=== PATIENT | male | born 1970 | race Caucasian/White ===

== ENCOUNTER 2022-01-13 19:47 | Emergency (ER) | payer OTHER ==
[2022-01-13 20:35] LABS: Absolute Lymphocytes (CBC) 0.7 K/uL (0.7-4.9); Hematocrit 45.8 % (39.6-49.0); Lymphocytes % 4.1 % (15.3-44.8); MPV 7.1 fL (7.6-11.3); RBC Red Blood Cell Count 4.57 M/uL (4.33-5.43)
[2022-01-13 20:36] LABS: Protime INR 1.04
[2022-01-13 20:48] LABS: Albumin 3.7 g/dL (3.4-5.0); BUN Blood Urea Nitrogen 7 mg/dL (7-18); Bicarbonate 27 mmol/L (21-32); Glucose Level 122 mg/dL (74-106); Potassium 3.7 mmol/L (3.5-5.1); Sodium Level 133 mmol/L (136-145)
[2022-01-13] MEDS ORDERED: THIAMINE 200 MG/2 ML INJ ONE (20:49)
[2022-01-13] MEDS ORDERED: ACETAMINOPHEN 500 MG TAB ONE (20:49)
[2022-01-13] MEDS ORDERED: MULTIVITAMINS 10 ML VIAL (INJ) IV ONE (20:50)
[2022-01-13] MEDS ORDERED: NA CHLORIDE 0.9% 1,000 ML ONE (20:50)
[2022-01-13] MEDS ORDERED: FOLIC ACID 5 MG/ML VIAL ONE (20:53)
--- NOTE | 2022-01-13 21:07 | RAD REPORT ---
EXAM DESCRIPTION: CT - Head Brain Wo Cont - 01/13/2022 8:56 pm CLINICAL HISTORY: HEADACHE COMPARISON: <Comparisons> TECHNIQUE: Axial 5 mm thick images of the head were obtained without IV contrast. All CT scans are performed using dose optimization technique as appropriate and may include automated exposure control or mA/KV adjustment according to patient size. FINDINGS: No intracranial hemorrhage, mass, edema or shift of mid-line structures. No acute infarcti on changes seen. No abnormal extra-axial fluid collections. Ventricles are normal. Mastoid air cells and visualized portions of the paranasal sinuses are clear. No acute bony findings. IMPRESSION: Negative non-contrast CT head examination.
[2022-01-13 21:37] LABS: ALT/SGPT 46 U/L (12-78); AST/SGOT 33 U/L (15-37); Alkaline Phosphatase 91 U/L (45-117); Bilirubin Direct 0.2 mg/dL (0-0.2); Bilirubin Total 0.8 mg/dL (0.2-1.0); NT PRO-BNP 88 pg/mL (<125); Protein, Total 7.8 g/dL (6.4-8.2)
[2022-01-13 21:44] LABS: Urine Blood Trace-intact (Negative); Urine Glucose Negative (Negative); Urine Protein 1+ (Negative)
[2022-01-13 22:00] LABS: Blood Morphology Comment NOT SEEN (NOT SEEN); Platelet Estimate ADEQ; White Blood Cell Scan OK (OK)
--- NOTE | 2022-01-13 22:12 | RAD REPORT ---
EXAM DESCRIPTION: RAD - Chest Single View - 01/13/2022 9:05 pm CLINICAL HISTORY: Hypertension COMPARISON: None TECHNIQUE: AP portable chest image was obtained 01/13/2022 9:05 pm . FINDINGS: Lungs are clear. Heart and vasculature are normal. No measurable pleural effusion and no p neumothorax. No acute bony abnormality seen. No acute aortic findings suspected. IMPRESSION: No acute cardiopulmonary process.
[2022-01-13] MEDS ORDERED: chlordiazePOXIDE HCl 25 MG CAP ONE (22:20)
[2022-01-13 22:23] LABS: Barbiturates NEGATIVE (NEGATIVE); Benzodiazepines NEGATIVE (NEGATIVE); Cocaine NEGATIVE (NEGATIVE); METHAMPHETAM NEGATIVE (NEGATIVE); Methadone NEGATIVE (NEGATIVE); Opiates NEGATIVE (NEGATIVE); Phencyclidine NEGATIVE (NEGATIVE); THC Cannibis POSITIVE (NEGATIVE)
[2022-01-13 22:57] LABS: SARS-COV-2 RT PCR NEGATIVE (NEGATIVE)
--- NOTE | 2022-01-14 00:04 | ER ---
Nurse's Notes [facility] Name: Mars Raymond Age: 51 yrs Sex: Male : 1970 Arrival Date: 01/13/2022 Time: 19:49 Bed 20 Private MD: Diagnosis: Elevated blood-pressure reading, without diagnosis of hypertension;Alcohol abuse Presentation: 01/13 19:49 Chief complaint: Patient states: [facility] sm[facility] his BP and it was 150/103, gave pt an unknown blood pressure medication. pt has no hx of HTN. pt's last drink was at 11am. Coronavirus screen: Vaccine status: Patient reports being unvaccinated. Ebola Screen: No symptoms or risks identified at this time. Initial Sepsis Screen: Does the patient meet any 2 criteria? No. Patient's initial sepsis screen is negative. Does the patient have a suspected source of infection? No. Patient's initial sepsis screen is negative. Risk Assessment: Do you want to hurt yourself or someone else? Patient reports no desire to harm self or others. Onset of symptoms was January 13, 2022. 19:49 Method Of Arrival: EMS: [facility] 19:49 Acuity: LENA 3 sm5 Triage Assessment: 19:53 General: Appears in no apparent distress. Behavior is cooperative. Pain: Complains of sm5 pain in head. Neuro: No deficits noted. Level of Consciousness is awake, alert, obeys commands, Oriented to person, place, time, situation. Cardiovascular: No deficits noted. Capillary refill < 3 seconds Patient's skin is warm and dry. Respiratory: Reports cough that is Airway is patent Trachea midline Respiratory effort is even, unlabored. Historical: - Allergies: 19:52 Bees; sm5 - Home Meds: 19:52 None [Active]; sm5 - PMHx: 19:52 None; sm5 - Immunization history:: Client reports having NOT received the Covid vaccine. Flu vaccine is not up to date. - Social history:: Smoking status: Patient reports the use of cigarette tobacco products, smokes one pack cigarettes per day. Patient uses alcohol, on a daily basis. Screenin:53 Abuse screen: Denies threats or abuse. Denies injuries from another. Nutritional sm5 screening: No deficits noted. Tuberculosis screening: No symptoms or risk factors identified. Fall Risk None identified. Assessment: 20:15 Reassessment: see triage assessment. 5 21:08 Reassessment: Patient and/or family updated on plan of care and expected duration. Pain sm5 level reassessed. Patient is alert, oriented x 3, equal unlabored respirations, skin warm/dry/pink. 22:28 Reassessment: No changes from previously documented assessment. 5 23:08 Reassessment: No changes from previously documented assessment. 5 01/14 00:12 Reassessment: No changes from previously documented assessment. [facility] Vital Signs: 01/13 19:49 BP 147 / 90; Pulse 94; Resp 17; Temp 99.1(O); Pulse Ox 95% on R/A; Weight 95.25 kg; 5 Height 5 ft. 11 in. (180.34 cm); 21:11 BP 155 / 60; Pulse 92; Resp 28; Pulse Ox 94% on R/A; sm5 22:57 BP 164 / 85; Pulse 91; Resp 20; Pulse Ox 89% on R/A; sm5 23:00 Pulse Ox 92% on 2 lpm NC; sm5 23:30 BP 139 / 86; he 23:56 BP 156 / 87; Pulse 98; Resp 19; Pulse Ox 96% on R/A; he 19:49 Body Mass Index 29.29 (95.25 kg, 180.34 cm) 5 ED Course: 19:49 Patient arrived in ED. 5 19:52 Triage completed. 5 19:53 Arm band placed on right wrist. 5 19:53 Patient has correct armband on for positive identification. Bed in low position. Call [facility] light in reach. Side rails up X2. garage supervisor on. Pulse ox on. NIBP on. 19:54 Bella Cooper RN is Primary Nurse. 5 20:00 Hector Perez MD is Attending Physician. 7 20:22 Inserted saline lock: 20 gauge in right forearm, using aseptic technique. Blood 5 collected. 20:27 ETOH Level Sent. sm5 20:27 Basic Metabolic Panel Sent. 5 20:28 CBC with Diff Sent. 5 20:28 LFT's Sent. 5 20:28 Magnesium Sent. 5 20:28 NT PRO-BNP Sent. 5 20:28 PT-INR Sent. [facility] 20:28 Troponin HS Sent. [facility] 20:55 CT Head Brain wo Cont In Process Unspecified. EDMS 21:03 COVID-19/FLU A+B (Document "Date of Onset" if Symptomatic) Sent. [facility] 21:05 XRAY Chest (1 view) In Process Unspecified. EDMS 21:47 UDS Sent. [facility] 01/14 00:03 Hi Galdamez MD is Referral Physician. [facility] 00:25 No provider procedures requiring assistance completed. IV discontinued, intact, [facility] bleeding controlled, No redness/swelling at site. Pressure dressing applied. Administered Medications: 01/13 21:03 Drug: Banana Bag - (NS 0.9% 1000 ml, foLIC Acid 1 mg, Thiamine 100 mg, Multivitamin 1 [facility] amp) Route: IV; Rate: calculated rate; Site: right forearm; 21:03 Drug: Tylenol 1000 mg Route: PO; [facility] 22:20 Drug: Librium - chlordiazePOXIDE 50 mg Route: PO; [facility] Outcome: 01/14 00:04 Discharge ordered by . [facility] 00:25 Discharged to [place] [id number] 00:25 Condition: stable 00:25 Discharge instructions given to patient, Instructed on discharge instructions, follow up and referral plans. medication usage, Demonstrated understanding of instructions, follow-up care, medications, Prescriptions given X 1. 00:26 Patient left the ED. [facility] Signatures: Dispatcher [employer] Hector Marcelino MD MD [facility] Bella Cooper RN RN [facility] Eunice Villanueva RN RN he Corrections: (The following items were deleted from the chart) 01/13 19:53 19:52 Allergies: No Known Allergies; [place] [id number]
--- NOTE | 2022-01-14 00:04 | EDPHYS ---
Physician Documentation [facility] Name: Mars Raymond Age: 51 yrs Sex: Male : 1970 Arrival Date: 01/13/2022 Time: 19:49 Bed 20 Private MD: ED Physician Hector Perez HPI: 01/13 20:17 This 51 yrs old Male presents to ER via EMS with complaints of Elevated blood pressure. mh7 20:17 The patient has elevated blood pressure and discovered this Rehab facility. Onset: The mh7 symptoms/episode began/occurred today. Modifying factors: The symptoms are aggravated by Stopped drinking alcohol, The symptoms are alleviated by prescription meds, Unknown. Associated signs and symptoms: Pertinent positives: headache, Pertinent negatives: chest pain, dizziness, dyspnea, lightheadedness, nausea, visual changes, vomiting, weakness. Severity of symptoms: At its worst the blood pressure was moderate, earlier today, 150 mm Hg, in the emergency department the blood pressure is improved, mildly, 147 mm Hg. Historical: - Allergies: 19:52 Bees; sm5 - Home Meds: 19:52 None [Active]; sm5 - PMHx: 19:52 None; sm5 - Immunization history:: Client reports having NOT received the Covid vaccine. Flu vaccine is not up to date. - Social history:: Smoking status: Patient reports the use of cigarette tobacco products, smokes one pack cigarettes per day. Patient uses alcohol, on a daily basis. ROS: 20:17 Constitutional: Negative for fever, chills, and weight loss, Eyes: Negative for injury, mh7 pain, redness, and discharge, ENT: Negative for injury, pain, and discharge, Neck: Negative for injury, pain, and swelling, Cardiovascular: Negative for chest pain, palpitations, and edema, Respiratory: Negative for shortness of breath, cough, wheezing, and pleuritic chest pain, Abdomen/GI: Negative for abdominal pain, nausea, vomiting, diarrhea, and constipation, Back: Negative for injury and pain, : Negative for injury, bleeding, discharge, and swelling, MS/Extremity: Negative for injury and deformity, Skin: Negative for injury, rash, and discoloration. 20:17 Psych: Negative for depression, anxiety, suicide ideation, homicidal ideation, and hallucinations, Allergy/Immunology: Negative for hives, rash, and allergies, Endocrine: Negative for neck swelling, polydipsia, polyuria, polyphagia, and marked weight changes, Hematologic/Lymphatic: Negative for swollen nodes, abnormal bleeding, and unusual bruising. 20:17 Neuro: Negative for dizziness, gait disturbance, hearing loss, loss of consciousness, numbness, seizure activity, speech changes, syncope, near syncope, tingling, tinnitus, tremor, visual changes, weakness. Exam: 20:17 Constitutional: This is a well developed, well nourished patient who is awake, alert, mh7 and in no acute distress. Eyes: Pupils equal round and reactive to light, extra-ocular motions intact. Lids and lashes normal. Conjunctiva and sclera are non-icteric and not injected. Cornea within normal limits. Periorbital areas with no swelling, redness, or edema. Neck: Trachea midline, no thyromegaly or masses palpated, and no cervical lymphadenopathy. Supple, full range of motion without nuchal rigidity, or vertebral point tenderness. No Meningismus. Chest/axilla: Normal chest wall appearance and motion. Nontender with no deformity. No lesions are appreciated. Cardiovascular: Regular rate and rhythm with a normal S1 and S2. No gallops, murmurs, or rubs. Normal PMI, no JVD. No pulse deficits. Respiratory: Lungs have equal breath sounds bilaterally, clear to auscultation and percussion. No rales, rhonchi or wheezes noted. No increased work of breathing, no retractions or nasal flaring. Abdomen/GI: Soft, non-tender, with normal bowel sounds. No distension or tympany. No guarding or rebound. No evidence of tenderness throughout. Back: No spinal tenderness. No costovertebral tenderness. Full range of motion. Skin: Warm, dry with normal turgor. Normal color with no rashes, no lesions, and no evidence of cellulitis. MS/ Extremity: Pulses equal, no cyanosis. Neurovascular intact. Full, normal range of motion. Neuro: Awake and alert, GCS 15, oriented to person, place, time, and situation. Cranial nerves II-XII grossly intact. Motor strength 5/5 in all extremities. Sensory grossly intact. Cerebellar exam normal. Normal gait. Psych: Awake, alert, with orientation to person, place and time. Behavior, mood, and affect are within normal limits. 20:17 Head/face: Noted is tenderness, that is mild, of the top of head. [facility] 20:45 ECG was reviewed by the Attending Physician. [facility] Vital Signs: 19:49 BP 147 / 90; Pulse 94; Resp 17; Temp 99.1(O); Pulse Ox 95% on R/A; Weight 95.25 kg; 5 Height 5 ft. 11 in. (180.34 cm); 21:11 BP 155 / 60; Pulse 92; Resp 28; Pulse Ox 94% on R/A; sm5 22:57 BP 164 / 85; Pulse 91; Resp 20; Pulse Ox 89% on R/A; sm5 23:00 Pulse Ox 92% on 2 lpm NC; 5 23:30 BP 139 / 86; he 23:56 BP 156 / 87; Pulse 98; Resp 19; Pulse Ox 96% on R/A; he 19:49 Body Mass Index 29.29 (95.25 kg, 180.34 cm) [facility] MDM: 01/14 00:01 Differential diagnosis: hypertensive crisis, Malignant HTN, intracerebral hemorrhage, [facility] Alcohol abuse, alcohol withdrawal, substance abuse, hypertension. Data reviewed: vital signs, nurses notes, EMS record, lab test result(s), cardiac enzymes, CBC, drug level(s), alcohol, electrolytes, Flu: negative urinalysis, urine drug screen, EKG, radiologic studies, CT scan, plain films. Data interpreted: Pulse oximetry: on room air is 96 %. Interpretation: normal. Counseling: I had a detailed discussion with the patient and/or guardian regarding: the historical points, exam findings, and any diagnostic results supporting the discharge/admit diagnosis, the presence of at least one elevated blood pressure reading (>120/80) during this emergency department visit, lab results, radiology results, the need for outpatient follow up, to return to the emergency department if symptoms worsen or persist or if there are any questions or concerns that arise at home. Response to treatment: the patient's symptoms have markedly improved after treatment. 00:04 Patient medically screened. [facility] 01/13 20:12 Order name: Basic Metabolic Panel [facility] 01/13 20:12 Order name: CBC with Diff; Complete Time: 22:03 [facility] 01/13 20:12 Order name: LFT's; Complete Time: 22:03 [facility] 01/13 20:12 Order name: Magnesium; Complete Time: 22:03 [facility] 01/13 20:12 Order name: NT PRO-BNP; Complete Time: 22:03 [facility] 01/13 20:12 Order name: PT-INR; Complete Time: 20:57 [facility] 01/13 20:12 Order name: Troponin HS; Complete Time: 22:03 [facility] 01/13 20:12 Order name: XRAY Chest (1 view); Complete Time: 22:23 [facility] 01/13 20:12 Order name: UDS; Complete Time: 22:23 [facility] 01/13 20:12 Order name: ETOH Level; Complete Time: 20:57 [facility] 01/13 20:12 Order name: Basic Metabolic Panel; Complete Time: 22:03 [facility] 01/13 20:13 Order name: COVID-19/FLU A+B (Document "Date of Onset" if Symptomatic); Complete Time: [facility] 23:32 01/13 21:43 Order name: Urine Dipstick-Ancillary; Complete Time: 22:03 [facility] 01/13 22:00 Order name: CBC Smear Scan [facility] 01/13 20:12 Order name: EKG; Complete Time: 20:13 [facility] 01/13 20:12 Order name: Cardiac monitoring; Complete Time: 20:27 [facility] 01/13 20:12 Order name: EKG - Nurse/Tech; Complete Time: 20:27 [facility] 01/13 20:12 Order name: IV Saline Lock; Complete Time: 20:27 [facility] 01/13 20:12 Order name: Labs collected and sent; Complete Time: 20:28 [facility] 01/13 20:12 Order name: O2 Per Protocol; Complete Time: 20:28 [facility] 01/13 20:12 Order name: O2 Sat Monitoring; Complete Time: 20:28 [facility] 01/13 20:12 Order name: Urine Dipstick-Ancillary (obtain specimen); Complete Time: 21:47 [facility] 01/13 20:13 Order name: CT Head Brain wo Cont; Complete Time: 21:13 [facility] EC/09 20:45 Rate is 93 beats/min. Rhythm is regular, Sinus Rhythm with Occasional PVCs. QRS [place] is 7 Normal. MO interval is normal. QRS interval is normal. QT interval is normal. Q waves are Present in lead V1. T waves are Normal. No ST changes noted. Clinical impression: NSR w/ Non-specific ST/T Changes. Administered Medications: 21:03 Drug: Banana Bag - (NS 0.9% 1000 ml, foLIC Acid 1 mg, Thiamine 100 mg, Multivitamin 1 sm5 amp) Route: IV; Rate: calculated rate; Site: right forearm; 21:03 Drug: Tylenol 1000 mg Route: PO; sm5 22:20 Drug: Librium - chlordiazePOXIDE 50 mg Route: PO; sm5 Disposition Summary: 01/14/22 00:04 Discharge Ordered Location: Home [facility] Problem: an ongoing problem [facility] Symptoms: have improved [facility] Condition: Stable [facility] Diagnosis - Elevated blood-pressure reading, without diagnosis of hypertension [facility] - Alcohol abuse [facility] Followup: [facility] - With: Private Physician - When: 1 - 2 days - Reason: Worsening of condition, Recheck today's complaints, Continuance of care, Re-evaluation by your physician Followup: [facility] - With: Hi Galdamez MD - When: 1 - 2 days - Reason: Worsening of condition, Recheck today's complaints Discharge Instructions: - Discharge Summary Sheet [facility] - Alcohol Use Disorder [facility] - Hypertension, Adult, [id number] [facility] - How to Take Your Blood Pressure, [id number] [facility] Forms: - Medication Reconciliation Form [facility] - Thank You Letter [facility] - Antibiotic Education [facility] - Prescription Opioid Use [facility] Prescriptions: - chlordiazepoxide HCl 25 mg Oral capsule - take 2 capsule by ORAL route 4 times per day Day 1: Take 2 tablets every 6 mh7 hours. Day 2: Take 1 tablet every 6 hours. Day 3: Take 1 tablet every 12 hours. Day 4: Take 1 tablet at night.; 15 capsule; Refills: 0, Product Selection Permitted Signatures: Dispatcher [employer] Hector Marcelino MD MD 7 Bella Cooper RN RN constance5 Kerri Roy PA PA sb3 Corrections: (The following items were deleted from the chart) 19:53 19:52 Allergies: No Known Allergies; sm5 sm5
[2022-01-14 00:54] VITALS: TEMP 99.1
[2022-01-14 01:00] VITALS: BP 156/87; O2SAT 96
== END 2022-01-14 00:26 | disposition home or self-care (01) ==
LOC: ER 19:47
DX: R03.0 Elevated blood-pressure reading, without diagnosis of hypertension (principal); F10.10 Alcohol abuse, uncomplicated; F17.210 Nicotine dependence, cigarettes, uncomplicated; Z91.030 Bee allergy status; Z20.822 Contact with and (suspected) exposure to COVID-19
CPT/HCPCS: 93005 ×2; 85025; 80048; 36415; 80320; 83735; 85610; 80076; 81003; 84484; 83880; 0240U; 80307; 70450; 71045; 96374; 99285; J3411; J7030